=== PATIENT | female | born 1970 | race African-American/Black ===

== ENCOUNTER 2018-07-10 17:07 | Emergency (ER) | payer OTHER ==
[2018-07-10 17:20] VITALS: BMI 29.6
[2018-07-10 17:50] LABS: BASO % 0.6 % (0-2.0); EOS % 1.7 % (0-4.5); HEMATOCRIT 35.5 % (32.4-45.2); HEMOGLOBIN 12.3 GM/dL (10.7-15.3); LYMPH % 23.7 % (8-40); MCH 32.8 pg (25.7-33.7); MCHC 34.7 g/dl (32.0-36.0); MEAN CELL VOLUME 94.5 fl (80-96); MEAN PLT VOLUME 8.5 fl (7.5-11.1); MONO % 7.7 % (3.8-10.2); NEUT % 66.3 % (42.8-82.8); PLATELET COUNT 330 K/MM3 (134-434); RBC 3.76 M/mm3 (3.60-5.2); RDW 13.3 % (11.6-15.6); WHITE BLOOD COUNT 6.7 K/mm3 (4.0-10.0)
[2018-07-10 18:01] LABS: URINE APPEARANCE CLEAR; URINE BILIRUBIN NEGATIVE (<2.0 mg/dL); URINE COLOR COLORLESS; URINE GLUCOSE (UA) NEGATIVE (NEGATIVE); URINE KETONE NEGATIVE (NEGATIVE); URINE LEUK ESTERASE NEGATIVE (NEGATIVE); URINE NITRITE NEGATIVE (NEGATIVE); URINE PROTEIN NEGATIVE (NEGATIVE); URINE UROBILINOGEN NEGATIVE mg/dL (0.2-1.0)
[2018-07-10 18:13] LABS: EPI CELLS RARE /HPF (FEW); URINE MUCUS RARE
--- NOTE | 2018-07-10 18:22 | PDOC ---
History of Present Illness - General Chief Complaint: Pain, Acute Stated Complaint: RIGHT FLANK PAIN Time Seen by Provider: 07/10/18 17:44 - History of Present Illness Initial Comments: 07/10/18 18:55 Patient is a 48 year old female with no significant past medical history presented with right flank pain for 1 week. Patient described pain as constant, cramping, 10/10, right flank pain radiating to the RLQ/suprapubic area. Patient has been taking Motrin [id number], taking about 800-1000mg per day. Today, patient noted worsening of the flank pain and took 400mg in the morning, and again 800mg in the afternoon. Denies fever, chills, headache, dizziness, nausea, vomiting, chest pain, SOB, diarrhea, constipation, and urinary symptoms. Past History - Past Medical History Allergies/Adverse Reactions: Allergies Allergy/AdvReac Type Severity Reaction Status Date / Time No Known Allergies Allergy Verified 07/10/18 17:14 Home Medications: Ambulatory Orders NK [No Known Home Medication] 07/10/18 COPD: No Other medical history: DENIES. - Suicide/Smoking/Psychosocial Hx Smoking History: Never smoked Review of Systems - Review of Systems Constitutional: No: Chills, Fever, Weakness HEENTM: No: Tearing, Double Vision, Nose Congestion, Difficulty Swallowing Respiratory: No: Cough, Shortness of Breath Cardiac (ROS): No: Chest Pain, Palpitations ABD/GI: Yes: Vomiting, Abdominal cramping. No: Constipated, Diarrhea, Nausea, Poor Appetite : No: Burning, Dysuria, Discharge Neurological: No: Headache, Numbness, Tingling, Weakness *Physical Exam - Vital Signs Last Vital Signs Temp Pulse Resp BP Pulse Ox 98.5 F 75 19 114/81 100 07/10/18 17:15 07/10/18 17:15 07/10/18 17:15 07/10/18 17:15 07/10/18 17:15 - Physical Exam Comments: 07/10/18 18:55 General: awake, alert, oriented, not in acute distress Head:no signs of head trauma HEENT:PERRLA, EOMI, sclerae anicteric, no nasal discharge, non-erythematous oropharynx, moist mucous membranes Neck:soft, supple neck without thyromegaly Heart:regular rate and rhythm, normal S1/S2, no m,r,g Lung:clear to auscultation bilaterally Abdomen:soft, nontender, nondistended, NABS, no CVA tenderness Ext: +2 pulses, no peripheral edema Moderate Sedation - Procedure Monitoring Vital Signs: Procedure Monitoring Vital Signs Temperature 98.5 F 07/10/18 17:15 Pulse Rate 75 07/10/18 17:15 Respiratory Rate 19 07/10/18 17:15 Blood Pressure 114/81 07/10/18 17:15 O2 Sat by Pulse Oximetry (%) 100 07/10/18 17:15 ED Treatment Course - LABORATORY CBC & Chemistry Diagram: 07/10/18 17:43 07/10/18 17:43 - ADDITIONAL ORDERS Additional order review: Laboratory Results 07/10/18 17:53 Urine Color Colorless Urine Appearance Clear Urine pH 6.0 Ur Specific [place] 1.005 L Urine Protein Negative Urine Glucose (UA) Negative Urine Ketones Negative Urine Blood 1+ H Urine Nitrite Negative Urine Bilirubin Negative Urine Urobilinogen Negative Ur Leukocyte Esterase Negative Urine WBC (Auto) 1 Urine RBC (Auto) 1 Ur Epithelial Cells Rare Urine Mucus Rare 07/10/18 17:43 RBC 3.76 MCV 94.5 MCHC 34.7 RDW 13.3 MPV 8.5 Neutrophils % 66.3 Lymphocytes % 23.7 Monocytes % 7.7 Eosinophils % 1.7 Basophils % 0.6 Medical Decision Making - Medical Decision Making 07/10/18 18:21 Patient is a 48 year old female with no significant past medical history presented with right flank pain for 1 week. Patient described pain as constant, cramping, 10/10, right flank pain radiating to the RLQ/suprapubic area. Patient has been taking Motrin [id number], taking about 800-1000mg per day. DDx include but not limited to nephrolithiasis, appendicitis, dissection CBC, CMP done - wnl UA - +[address] scan of abdomen and pelvis without contrast 07/10/18 18:55
[2018-07-10 18:28] LABS: ALK PHOS 81 U/L (45-117); ANION GAP 7 MMOL/L (8-16); BILIRUBIN,TOTAL 0.2 mg/dL (0.2-1); BLOOD UREA NITROGEN 15 mg/dL (7-18); CALCIUM 8.5 mg/dL (8.5-10.1); CHLORIDE 103 mmol/L (98-107); CO2 25 mmol/L (21-32); CREATININE 0.8 mg/dL (0.55-1.3); GLUCOSE,RANDOM 83 mg/dL (74-106); POTASSIUM 4.3 mmol/L (3.5-5.1); SGOT/AST 24 U/L (15-37); SGPT/ALT 21 U/L (13-61); SODIUM 135 mmol/L (136-145); TOT PROT 7.6 g/dl (6.4-8.2)
--- NOTE | 2018-07-10 18:45 | PDOC ---
Attending Attestation - Resident Resident Name: Ashly Carlos - ED Attending Attestation I have performed the following: I have examined & evaluated the patient, The case was reviewed & discussed with the resident, I agree w/resident's findings & plan, Exceptions are as noted - HPI HPI: 07/10/18 18:43 48 yo F with no sig PMH p/w sudden onset R sided flank radiates RLQ x 1 week. A/ w nausea and vomiting 7 days ago but that has since resolved. Has been taking motrin which intermittently helps but did not help today prompting her to come to the ED. No hx renal colic. LMp last year. No hx ovarian pathology. No vaginal DC or bleeding. No f/c, dizziness, CP/SOB, dysuria, hematuria, frequency. - Physicial Exam PE: 07/10/18 20:42 GENERAL: Awake, alert, and fully oriented, in no acute distress EYES: PERRLA, EOMI, sclera anicteric, conjunctiva clear ENT: Oropharynx clear without exudates. Moist mucosa NECK: Normal ROM, supple, no lymphadenopathy LUNGS: Breath sounds equal, clear to auscultation bilaterally. No wheezes, and no crackles HEART: Regular rate and rhythm, normal S1 and S2, no murmurs, rubs or gallops ABDOMEN: Soft, nontender, normoactive bowel sounds. No guarding, no rebound. No masses. No CVAT EXTREMITIES: Normal range of motion, no edema. No cords, erythema, or tenderness NEUROLOGICAL: Normal speech, cranial nerves intact, equal strength and sensation b/l SKIN: Warm, Dry, normal turgor, no rashes or lesions noted. - Medical Decision Making 07/10/18 20:43 48yo F presents to the ED with R flank radiating to RLQ pain for 10 days. Vitals wnl. Exam with no abd ttp. DDx includes renal colic vs pyelonephritis vs MSK pain vs ovarian cyst. Serum preg negative. CTAP negative for renal colic but with possible R sided ovarian cyst and moderate free fluid Pelvic with mild R adnexal ttp, TVUs pending 07/10/18 23:25 TVUS reveals 3cm R sided ovarian cyst ovarian cyst likely cause of pain as possible rupture with small free fluid Also fibroid and smaller L adnexal cyst All results discussed with patient. Pt to f/u with [facility] Pt feels well, requests DC home I discussed the physical exam findings, ancillary test results and final diagnoses with the patient. I answered all of the patient's questions. The patient was satisfied with the care received and felt comfortable with the discharge plan and treatment plan. The patient will call their primary care physician within 24 hours to arrange follow-up and will return to the Emergency Department with any new, persistent or worsening symptoms. 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 Take naproxen twice a day as needed for pain. Do not take aleve, ibuprofen, motrin or any NSAID medication when taking naproxen. Return to the emergency department if you have any new, worsening, or concerning symptoms. - Post Discharge Activity - Attestations Physician Attestion: 07/10/18 23:31 I, Dr. Sandra Christy MD, attest that this document has been prepared under my direction and personally reviewed by me in its entirety. I further attest, that it accurately reflects all work, treatment, procedures and medical decision -making performed by me.
--- NOTE | 2018-07-10 19:27 | PDOC ---
*Physical Exam - Vital Signs Last Vital Signs Temp Pulse Resp BP Pulse Ox 98.5 F 75 19 114/81 100 07/10/18 17:15 07/10/18 17:15 07/10/18 17:15 07/10/18 17:15 07/10/18 17:15 ED Treatment Course - LABORATORY CBC & Chemistry Diagram: 07/10/18 17:43 07/10/18 17:43 - ADDITIONAL ORDERS Additional order review: Laboratory Results 07/10/18 07/10/18 17:53 17:43 Sodium 135 L Potassium 4.3 Chloride 103 Carbon Dioxide 25 Anion Gap 7 L BUN 15 Creatinine 0.8 Creat Clearance w eGFR > 60 Random Glucose 83 Calcium 8.5 Total Bilirubin 0.2 AST 24 ALT 21 Alkaline Phosphatase 81 Total Protein 7.6 Albumin 4.0 Urine Color Colorless Urine Appearance Clear Urine pH 6.0 Ur Specific [place] 1.005 L Urine Protein Negative Urine Glucose (UA) Negative Urine Ketones Negative Urine Blood 1+ H Urine Nitrite Negative Urine Bilirubin Negative Urine Urobilinogen Negative Ur Leukocyte Esterase Negative Urine WBC (Auto) 1 Urine RBC (Auto) 1 Ur Epithelial Cells Rare Urine Mucus Rare 07/10/18 17:43 RBC 3.76 MCV 94.5 MCHC 34.7 RDW 13.3 MPV 8.5 Neutrophils % 66.3 Lymphocytes % 23.7 Monocytes % 7.7 Eosinophils % 1.7 Basophils % 0.6 Medical Decision Making - Medical Decision Making 07/10/18 19:[address] Carlos. 07/10/18 20:[address] negative for acute findings. Positive findings include 2 subcentimeter cysts in right lobe of liver. Incidental small fat containing umbilical hernia. Uterus prominent in size and myomatous. 7.5 cm rounded mass anterior to uterus, likely pedunculated fibroid. Also rounded 2.6 cm hyperdense finding in right pelvis possibly hemorrhagic ovarian cyst. Moderate free fluid in pelvis also noted prompting TVUS for further evaluation. Discussed with patient who agrees.
[2018-07-10] MEDS ORDERED: morphine CARPU-JECT 2 MG/1 ML DISP.SYRIN IVPUSH ONE (20:19)
[2018-07-10] MEDS ORDERED: MORPHINE SULFATE 2 MG/ML VIAL ONE (20:22)
[2018-07-10 21:37] VITALS: BP 157/73; PULSE 69; TEMP 98
== END 2018-07-10 23:52 | disposition home or self-care (01) ==
LOC: JER 17:07
PROC: 3E033NZ Introduction of Analgesics, Hypnotics, Sedatives into Peripheral Vein, Percutaneous Approach (ICD-10-PCS; principal; 2018-07-10)
DX: R10.9 Unspecified abdominal pain (principal); R10.31 Right lower quadrant pain; N83.209 Unspecified ovarian cyst, unspecified side
CPT/HCPCS: 36415; 74176-TC; 76830-TC; 80053; 81003; 81015; 84703; 85025; 87086; 99284-25